=== PATIENT | female | born 1940 | race Caucasian/White ===

== ENCOUNTER 2020-04-27 12:35 | Emergency (ER) | payer MEDICARE, MEDICAID ==
[~2020-04-27] VITALS: Ht 165.1 cm; Wt 95.6 kg
[2020-04-27 12:45] VITALS: BP 124/64
[2020-04-27] MEDS ORDERED: CLIN300C70 PO (14:39)
[2020-04-27] MEDS ORDERED: CYCL-1 PO (14:39)
[2020-04-27] MEDS ORDERED: ACET-1025 PO (14:39)
== END 2020-04-27 14:58 | disposition home or self-care (01) ==
LOC: ER 12:35
DX: S16.1XXA Strain of muscle, fascia and tendon at neck level, initial encounter (principal); M54.2 Cervicalgia; K04.7 Periapical abscess without sinus; G89.29 Other chronic pain; Z98.890 Other specified postprocedural states; Z88.0 Allergy status to penicillin; Z79.2 Long term (current) use of antibiotics; Z79.899 Other long term (current) drug therapy; X58.XXXA Exposure to other specified factors, initial encounter; Y93.89 Activity, other specified; Y92.89 Other specified places as the place of occurrence of the external cause; Y99.8 Other external cause status
CPT/HCPCS: 99283